=== PATIENT | female | born 1935 | race Caucasian/White ===

== ENCOUNTER 2019-12-16 06:54 | Day surgery (SDC) | payer MEDICARE, BC ==
--- NOTE | 2019-12-15 10:55 | PCM.PREANE ---
Preanesthetic Assessment - Procedure Proposed Procedure: Right Carpal Tunnel Release and Right Long finger A1 Jane Release - Anesthesia/Transfusion/Family Hx Anesthesia History: Prior Anesthesia Reaction Type of Anesthesia Reaction: Excessive Nausea/Vomiting Family History of Anesthesia Reaction: No Transfusion History: No Prior Transfusion(s) Intubation History: Unknown - Review of Systems Pulmonary: No Symptoms (COPD (asthma)), Shortness of Breath, Cough (chronic) Cardiovascular: No Symptoms (HTN, Elevated cholesterol), Dyspnea on Exertion Gastrointestinal: No Symptoms (GERD) Other: Reports: Diabetes (Pre-Diabetic: am blood sugar=), Sinus Problem ([place] Allergies) - Physical Assessment NPO Status Date: 12/15/19 Vital Signs: HR: Sat: Temp: B/P: Resp: Height: 1.57 m ASA Class: 3 Mental Status: Alert & Oriented x3 - Lab Values: All labs reviewed and noted and within acceptable ranges to proceed with scheduled procedure. - Imaging/EKG Impressions: EKG: CXR: Echocardiogram: Moderate aortic regurgitation/ - Anesthesia Plan Pre-Op Medication Ordered: None - Acknowledgements Anesthesia Type Planned: FAHAD (Mini-Fahad Block), MAC Pt an Appropriate Candidate for the Planned Anesthesia: Yes Alternatives and Risks of Anesthesia Discussed w Pt/Guardian: Yes Pt/Guardian Understands and Agrees with Anesthesia Plan: Yes PreAnesthesia Questionnaire - CURRENT (IN HOUSE) MEDS Current Meds: Current Medications Lactated Ringer's (Ringers, Lactated) 1,000 mls @ 125 mls/hr IV ASDIRECTED [facility] Stop: 12/16/19 23:00 Lidocaine/Sodium Bicarbonate (Buffered Lidocaine 1% In Ns 8.4%) 0.25 ml IDERM ONETIME PRN PRN Reason: Prior to IV Start Stop: 12/16/19 18:00 Scopolamine (Transderm-Scop) 1.5 mg TRDERM ONETIME PRN PRN Reason: PONV Sodium Chloride (Saline Flush) 10 ml FLUSH ASDIRECTED PRN PRN Reason: Keep Vein Open Stop: 12/16/19 18:00 Discontinued Medications Lactated Ringer's (Ringers, Lactated) 1,000 mls @ 125 mls/hr IV ASDIRECTED [facility] Stop: 12/16/19 23:00
[~2019-12-16 06:54] MED LIST: Scopolamine 1.5 MG Transdermal Patch TRDERM PRN
[2019-12-16] MEDS ORDERED: Sodium Chloride 0.9% 10 ML Syringe FLUSH PRN (07:00)
[2019-12-16] MEDS ORDERED: Lactated Ringers 1,000 ML IV SCH ×2 (07:00→07:30)
[2019-12-16] MEDS ORDERED: Lidocaine 1%/Sod Bicarbonate in NS 8.4% 1 ML Syringe IDERM PRN (07:00)
[2019-12-16] MEDS ORDERED: Lidocaine 1% 2 ML ONE (07:07)
[2019-12-16] MEDS ORDERED: Ondansetron 4 MG/2 ML SDV ONE (07:07)
[2019-12-16] MEDS ORDERED: Lidocaine 0.5% 50 ML SDV ONE (07:07)
[2019-12-16] MEDS ORDERED: Sodium Bicarbonate 8.4% 50 MEQ/50 ML SDV ONE (07:07)
[2019-12-16] MEDS ORDERED: fentaNYL 100 MCG/2 ML SDV ONE (07:08)
[2019-12-16] MEDS ORDERED: Propofol 200 MG/20 ML SDV ONE (07:08)
[2019-12-16] MEDS ORDERED: ceFAZolin 1 GM Vial ONE ×2 (07:15)
--- NOTE | 2019-12-16 07:58 | PCM.PREANE ---
Preanesthetic Assessment - Anesthesia/Transfusion/Family Hx Anesthesia History: Prior Anesthesia Reaction (ALONSO) Family History of Anesthesia Reaction: No Transfusion History: No Prior Transfusion(s) Intubation History: Unknown - Review of Systems General: No Symptoms Pulmonary: Cough Cardiovascular: No Symptoms Gastrointestinal: No Symptoms Neurological: No Symptoms Other: Reports: Diabetes (Pre-Diabetic: am blood sugar=), Sinus Problem ([place] Allergies) - Physical Assessment NPO Status Date: 12/15/19 NPO Status Time: 19:00 Height: 1.57 m ASA Class: 3 Mental Status: Alert & Oriented x3 Airway Class: Mallampati = 2 Dentition: Reports: Dentures (top) Thyro-Mental Finger Breadths: 3 Mouth Opening Finger Breadths: 3 ROM/Head Extension: Full Lungs: Clear to Auscultation, Normal Respiratory Effort Cardiovascular: Regular Rate, Regular Rhythm - Lab Values: Laboratory Last Values POC Glucose 115 mg/dL (83-110) H 12/16/19 07:27 - Allergies Allergies/Adverse Reactions: Allergies Allergy/AdvReac Type Severity Reaction Status Date / Time metformin Allergy Stomach Verified 12/15/19 14:31 Upset - Acknowledgements Anesthesia Type Planned: FAHAD, MAC Pt an Appropriate Candidate for the Planned Anesthesia: Yes Alternatives and Risks of Anesthesia Discussed w Pt/Guardian: Yes Pt/Guardian Understands and Agrees with Anesthesia Plan: Yes PreAnesthesia Questionnaire HEENT History: Reports: Impaired Vision, Other (See Below) Other HEENT History: wears dentures, has glasses Cardiovascular History: Reports: High Cholesterol, Hypertension, HI, Other (See Below) Other Cardiovascular History: mild mitral valve regurgitation, aortic regurgitiation Respiratory History: Reports: Asthma Gastrointestinal History: Reports: GERD, Other (See Below) Other Gastrointestinal History: colitis, hepatitis A [employer]UMBER History: Reports: Other (See Below) Other OB/BYN History: pelvic laparoscopy Musculoskeletal History: Reports: Arthritis Neurological History: Reports: None Psychiatric History: Reports: None Endocrine/Metabolic History: Reports: Other (See Below) Other Endocrine/Metabolic History: pre diabetes Hematologic History: Reports: None Immunologic History: Reports: None Oncologic (Cancer) History: Reports: None Dermatologic History: Reports: None - Infectious Disease History Infectious Disease History: Reports: None - Past Surgical History Cardiovascular Surgical History: Reports: None Respiratory Surgical History: Reports: None GI Surgical History: Reports: Appendectomy, Colonoscopy, EGD Female Surgical History: Reports: Hysterectomy, Other (See Below) Other Female Surgeries/Procedures: cystoscopy Endocrine Surgical History: Reports: None Neurological Surgical History: Reports: None Musculoskeletal Surgical History: Reports: Arthroscopic Knee, Knee Replacement Oncologic Surgical History: Reports: None Dermatological Surgical History: Reports: None - SUBSTANCE USE Tobacco Use Status *Q: Never Tobacco User Recreational Drug Use History: No - HOME MEDS Home Medications: Home Meds Albuterol Sulfate [Proair Hfa] 2 puff INH Q4H PRN 12/15/19 [History] Ascorbic Acid [Vitamin C] 1,000 mg PO DAILY 12/15/19 [History] Aspirin 81 mg PO DAILY 12/15/19 [History] Betamethasone Dipropionate [Diprosone 0.05% Crm] 1 dose TOP DAILY 12/15/19 [History] Cranberry 400 mg PO DAILY 12/15/19 [History] Famotidine [Pepcid] 20 mg PO DAILY 12/15/19 [History] Fluticasone Propionate [Flonase] 1 dose NASBOTH QAM 12/15/19 [History] Fluticasone/Salmeterol [Advair 100-50] 1 puff INH BID 12/15/19 [History] Lactobacillus Combo No.10 [Probiotic] 1 cap PO DAILY 12/15/19 [History] Losartan [Cozaar] 100 mg PO DAILY 12/15/19 [History] Metoclopramide [Reglan] 5 mg PO BID 12/15/19 [History] Metoprolol/Hydrochlorothiazide [Metoprolol-HCTZ 100-25 MG] 1 tab PO DAILY 12/15/19 [History] Naproxen Sodium [Aleve] 220 mg PO Q8H PRN 12/15/19 [History] Omeprazole Magnesium [Prilosec Otc] 20 mg PO DAILY 12/15/19 [History] Potassium Chloride 10 meq PO DAILY 12/15/19 [History] Simvastatin [Zocor] 20 mg PO BEDTIME 12/15/19 [History] estradioL [Estrace 0.01% Vaginal Crm] 1 dose VAG ASDIRECTED 12/15/19 [History] traZODone HCl [Trazodone HCl] 50 mg PO BEDTIME 12/15/19 [History] - CURRENT (IN HOUSE) MEDS Current Meds: Current Medications Lactated Ringer's (Ringers, Lactated) 1,000 mls @ 125 mls/hr IV ASDIRECTED [facility] Stop: 12/16/19 23:00 Lidocaine/Sodium Bicarbonate (Buffered Lidocaine 1% In Ns 8.4%) 0.25 ml IDERM ONETIME PRN PRN Reason: Prior to IV Start Stop: 12/16/19 18:00 Scopolamine (Transderm-Scop) 1.5 mg TRDERM ONETIME PRN PRN Reason: PONV Stop: 12/16/19 18:00 Sodium Chloride (Saline Flush) 10 ml FLUSH ASDIRECTED PRN PRN Reason: Keep Vein Open Stop: 12/16/19 18:00 Discontinued Medications Cefazolin Sodium (Ancef) Confirm Administered Dose 1 gm .ROUTE .STK-MED ONE Stop: 12/16/19 07:16 Cefazolin Sodium (Ancef) Confirm Administered Dose 1 gm .ROUTE .STK-MED ONE Stop: 12/16/19 07:16 Fentanyl (Sublimaze) Confirm Administered Dose 100 mcg .ROUTE .STK-MED ONE Stop: 12/16/19 07:09 Lactated Ringer's (Ringers, Lactated) 1,000 mls @ 125 mls/hr IV ASDIRECTED [facility] Stop: 12/16/19 23:00 Lidocaine HCl (Xylocaine-Mpf 1%) Confirm Administered Dose 2 mls @ as directed .ROUTE .STK-MED ONE Stop: 12/16/19 07:08 Lidocaine HCl (Xylocaine-Mpf 0.5%) Confirm Administered Dose 50 ml .ROUTE .STK- MED ONE Stop: 12/16/19 07:08 Ondansetron HCl (Zofran) Confirm Administered Dose 4 mg .ROUTE .STK-MED ONE Stop: 12/16/19 07:08 Propofol (Diprivan 20 Ml) Confirm Administered Dose 200 mg .ROUTE .STK-MED ONE Stop: 12/16/19 07:09 Sodium Bicarbonate (Sodium Bicarbonate 8.4%) Confirm Administered Dose 50 meq .ROUTE .STK-MED ONE Stop: 12/16/19 07:08
[2019-12-16] MEDS ORDERED: Bupivacaine 0.25% 10 ML SDV ONE (08:21)
[2019-12-16] MEDS ORDERED: ePHEDrine 50 MG/ML SDV IVPUSH PRN (08:48)
[2019-12-16] MEDS ORDERED: HYDROmorphone 0.5 MG/0.5 ML Syringe IVPUSH PRN (08:48)
[2019-12-16] MEDS ORDERED: fentaNYL 100 MCG/2 ML SDV IVPUSH PRN (08:48)
[2019-12-16] MEDS ORDERED: diphenhydrAMINE 50 MG/ML SDV IVPUSH PRN (08:48)
[2019-12-16] MEDS ORDERED: Ondansetron 4 MG/2 ML SDV IVPUSH PRN (08:48)
[2019-12-16] MEDS ORDERED: ePHEDrine 50 MG/ML SDV ONE (09:06)
--- NOTE | 2019-12-16 09:15 | PCM48HPAN ---
Post Anesthesia Note - EVALUATION WITHIN 48HRS OF ANESTHETIC Vital Signs in Normal Range: Yes Patient Participated in Evaluation: Yes Respiratory Function Stable: Yes Airway Patent: Yes Cardiovascular Function Stable: Yes Hydration Status Stable: Yes Pain Control Satisfactory: Yes Nausea and Vomiting Control Satisfactory: Yes Mental Status Recovered: Yes Vital Signs: Last Vital Signs Temp 36.2 C 12/16/19 07:40 Pulse 83 12/16/19 07:40 Resp 16 12/16/19 07:40 BP 119/78 12/16/19 07:40 Pulse Ox 97 12/16/19 07:40
--- NOTE | 2019-12-22 07:41 | OR ---
DATE OF OPERATION: 12/16/2019 SURGEON: Jovan Calderon MD PREOPERATIVE DIAGNOSIS: 1. Right carpal tunnel syndrome, G56.01. 2. Right longer finger stenosing tenosynovitis, M65.331. POSTOPERATIVE DIAGNOSIS: 1. Right carpal tunnel syndrome, G56.01. 2. Right long finger stenosing tenosynovitis, M65.331. OPERATION PERFORMED: 1. Right open carpal tunnel release, 27435. 2. Right long finger A1 evans release, 31462. ACOUSTIC ENGINEER: Kathryn Cisse RN DESCRIPTION OF PROCEDURE: The patient is a pleasant 84-year-old female with symptomatic carpal tunnel syndrome and a trigger finger of right long finger. After discussing the risks, benefits, and alternatives as well as conservative as well as surgical treatment, the patient verbalized understanding and wished to proceed with surgery. The patient was brought to the operating room and underwent a kate blockade. Right upper extremity was prepped and draped in standard orthopedic fashion. Surgical pause was performed identifying the appropriate patient and appropriate extremity to be operated upon. Preoperative antibiotics were given. A longitudinal incision was made between the thenar and hypothenar eminences. Sharp dissection was carried out through the skin and subcutaneous tissue. Hemostasis was obtained. We dissected down and divided the palmar fascial fibers down to the level of the transverse carpal ligament. The transverse carpal ligament was opened along its ulnar border and border and released down to the level of the superficial palmar arch. Attention was directed proximally. We then released the transverse carpal ligament and antebrachial fascia several centimeters proximal to the wrist crease. The contents of the carpal tunnel were evaluated. She had mild synovitis throughout the carpal tunnel, and the nerve did show some fusiform compression at the level of the transverse carpal ligament and brachial fascial junction. The wounds were irrigated thoroughly. The skin was closed with 5-0 nylon. Attention was directed to her right long finger. I made a longitudinal incision over the distal palmar crease of the right long finger. Sharp dissection was carried out through the skin and subcutaneous tissue. Hemostasis was obtained. I dissected down and identified the radial and ulnar vascular bundles, and the flexor tendon sheath. The A1 evans was opened with a [place] blade. The A1 evans was released at the level of the cruciate evans distally. Then turned our attention proximally, released the remaining part of the A1 evans proximally and also the flexor tendon sheath. She had hypertrophic palmar fascia fiber, which were also divided. She had moderate synovitis, which was debrided. Skin was subsequently closed with 5- 0 nylon. She was placed in soft dressing and brought to recovery in satisfactory condition. ANESTHESIA: ESTIMATED BLOOD LOSS: MMODAL /[id number]
== END 2019-12-16 09:48 | disposition home or self-care (01) ==
LOC: JD.SDS 06:54
PROVIDERS: ATTEND Orthopaedic Surgery
DX: G56.01 Carpal tunnel syndrome, right upper limb (principal); M65.841 Other synovitis and tenosynovitis, right hand; M65.331 Trigger finger, right middle finger; I10 Essential (primary) hypertension; E78.2 Mixed hyperlipidemia; K21.9 Gastro-esophageal reflux disease without esophagitis; I08.0 Rheumatic disorders of both mitral and aortic valves; E66.3 Overweight; M25.512 Pain in left shoulder; I25.2 Old myocardial infarction; Z88.8 Allergy status to other drugs, medicaments and biological substances; Z79.899 Other long term (current) drug therapy; Z68.25 Body mass index [BMI] 25.0-25.9, adult; Z79.82 Long term (current) use of aspirin; Z98.890 Other specified postprocedural states
CPT/HCPCS: 26055; 64721; 82962; 87641; A9270; J0690; J2001; J2405; J2704; J3010; J3490; J7120; 01810

== ENCOUNTER 2021-05-17 06:34 | Day surgery (SDC) | payer MEDICARE, BC ==
[~2021-05-17 06:34] MED LIST changes: +Lactated Ringers 1,000 ML IV SCH; +Lidocaine 1%/Sod Bicarbonate in NS 8.4% 1 ML Syringe IDERM PRN; -Scopolamine 1.5 MG Transdermal Patch TRDERM PRN; +Sodium Chloride 0.9% 10 ML Syringe FLUSH PRN; +Sodium Chloride 0.9% 10 ML Syringe FLUSH SCH
[2021-05-17] MEDS ORDERED: Bupivacaine 0.25% 10 ML SDV ONE (07:41)
[2021-05-17] MEDS ORDERED: Midazolam 1 MG/ML 2 ML SDV ONE (07:45)
[2021-05-17] MEDS ORDERED: fentaNYL 100 MCG/2 ML SDV ONE (07:46)
[2021-05-17] MEDS ORDERED: Lidocaine 1% 4 ML ONE (07:47)
[2021-05-17] MEDS ORDERED: Propofol 200 MG/20 ML SDV ONE (07:48)
[2021-05-17] MEDS ORDERED: Lidocaine 0.5% 50 ML SDV ONE (07:50)
[2021-05-17] MEDS ORDERED: Sodium Bicarbonate 8.4% 50 MEQ/50 ML SDV ONE (07:50)
[2021-05-17] MEDS ORDERED: Betamethasone Acetate/Betamethasone Sod Phosphate 30 MG/5 ML MDV ONE (08:18)
[2021-05-17] MEDS ORDERED: ceFAZolin 1 GM Vial ONE (08:52)
[2021-05-17] MEDS ORDERED: Lactated Ringers 1,000 ML ONE ×2 (09:08→09:16)
== END 2021-05-17 10:15 ==
LOC: JD.SDS 06:34
PROVIDERS: ATTEND Orthopaedic Surgery
DX: G56.02 Carpal tunnel syndrome, left upper limb (principal); M65.322 Trigger finger, left index finger; M65.332 Trigger finger, left middle finger; M65.88 Other synovitis and tenosynovitis, other site; M65.842 Other synovitis and tenosynovitis, left hand; M18.12 Unilateral primary osteoarthritis of first carpometacarpal joint, left hand; M67.442 Ganglion, left hand; J45.909 Unspecified asthma, uncomplicated; E78.2 Mixed hyperlipidemia; K21.9 Gastro-esophageal reflux disease without esophagitis; E11.40 Type 2 diabetes mellitus with diabetic neuropathy, unspecified; I10 Essential (primary) hypertension; Z88.2 Allergy status to sulfonamides; Z88.8 Allergy status to other drugs, medicaments and biological substances; Z79.899 Other long term (current) drug therapy; Z79.82 Long term (current) use of aspirin
CPT/HCPCS: 20600; 26055; 64721; 87641; J0690; J0702; J2250; J2704; J3010; J3490; J7120